=== PATIENT | male | born 1990 | race Caucasian/White ===

== ENCOUNTER 2017-09-17 10:58 | Emergency (ER) | payer MEDICAID ==
[2017-09-17 11:07] VITALS: RESP 16; TEMP 98.8
--- NOTE | 2017-09-17 11:34 | CPEKG ---
Heart Rate: 69 RR Interval: 870 P-R Interval: 148 QRSD Interval: 86 QT Interval: 368 QTC Interval: 395 P [place]: 70 QRS [place]: 74 T Wave [place]: 35 EKG Severity - NORMAL ECG - EKG Impression: SINUS RHYTHM Electronically Signed By: Nasir Warren 19-Sep-2017 05:31:48
--- NOTE | 2017-09-17 12:49 | EDPHY ---
HPI/HX/ROS/PE/MDM Narrative: CHIEF COMPLAINT: Anxiety, chest pain HISTORY OF PRESENT ILLNESS: This patient is a 27 year old male complaining of anxiety, difficulty breathing , and intermittent sharp chest pains onset two days ago. He endorses alcohol and methamphetamine use on Saturday. He denies cocaine use or OTC cough medications. His primary complaint today is anxiety. Yesterday, he experienced insomnia and lack of appetite. He had occasional sensations of numbness and paresthesias in his legs yesterday, but these have now resolved. He feels he has not been able to adequately return to baseline since his methamphetamine use. He has been in a transitional living rehabilitation program following occasional methamphetamine use over the last 1.5 years. Had not used in two months prior to last weekend. He denies personal history of hypertension, hyperlipidemia, diabetes or any known family history of cardiac disease. No recent cold, cough, rhinorrhea, fever, chills, palpitations, vomiting, diarrhea , urinary complaints, headache, lightheadedness. REVIEW OF SYSTEMS: Aside from elements discussed in the HPI, a comprehensive 10-point review of systems was reviewed and is negative. PAST MEDICAL HISTORY: 1. Medications: Gabapentin. Effexor. Wellbutrin. 2. Back pain. SOCIAL HISTORY: Uses chewing tobacco. Participating in transitional living rehabilitation program. Lives in [place]. VITAL SIGNS: Reviewed by me GENERAL: Well-developed, well-nourished, resting comfortably in no respiratory distress. HEENT: Atraumatic. Eyes: No icterus, no injection. Mouth: moist mucous membranes. No erythema or lesions. Neck: supple with no adenopathy. LUNGS: Clear to auscultation bilaterally, no wheezes, rhonchi or rales. CARDIAC: Regular rate and rhythm, no rubs, murmurs or gallops. ABDOMEN: Left upper quadrant tenderness. Soft, nondistended. BACK: No CVA tenderness. EXTREMITIES: No trauma. No edema. Range of motion is normal throughout. NEURO: Alert and oriented, grossly nonfocal. SKIN: Warm and dry, no rash. PSYCHIATRIC: Normal mentation, no agitation. Portions of this note were transcribed by a medical office technologist. I personally performed a history, physical exam, medical decision making, and confirmed accuracy of information the transcribed note. ED Course: 27 y/o male presents with chest pain, shortness of breath, and anxiety secondary to methamphetamine and alcohol use Saturday, three days ago. Plan for EKG, chest x-ray, labs including CBC, chemistries, troponin, liver, lipase. 12-LEAD EKG: Please see the full report in [facility]. My interpretation: Normal sinus rhythm, rate 69. Patient has no cardiac risk factors with the exception of his illicit drug use. He received Ativan which improved his symptoms. Troponin is negative. Chest x-ray negative for acute processes. Laboratory studies unremarkable. Plan to discharge back to his rehabilitation program in good condition. Follow up and return precautions discussed. The patient is comfortable with this plan. MDM: After history and physical examination, the differential for this patient's presenting complaint was considered, including but not limited to, myocardial ischemia, acute coronary syndrome, pulmonary embolus, chest wall pain, pleural inflammation and pulmonary infectious causes, gastric causes, anxiety, illicit drug use. - Data Points Imaging Results: CXR: Impression: No acute abnormality. Dictated By: Manav Schwab MD Imaging: I viewed and interpreted images myself Laboratory Results: Laboratory Results 09/17/17 11:42 09/17/17 11:42 Medications Given: Discontinued Medications Sodium Chloride (Ns) 1,000 mls @ 0 mls/hr IV EDNOW ONE; Wide Open PRN Reason: Protocol Stop: 09/17/17 12:52 Last Admin: 09/17/17 13:10 Dose: 1,000 mls Lorazepam (Ativan Injection) 1 mg IVP EDNOW ONE Stop: 09/17/17 13:57 Last Admin: 09/17/17 14:03 Dose: 1 mg General Time Seen by Provider: 09/17/17 12:26 Initial Vital Signs: Initial Vital Signs Temperature (C) 37.1 C 09/17/17 11:05 Heart Rate 67 09/17/17 11:05 Respiratory Rate 16 09/17/17 11:05 Blood Pressure 130/71 H 09/17/17 11:05 O2 Sat (%) 93 09/17/17 11:05 O2 Delivery Mode Room Air Allergies/Adverse Reactions: No Known Allergies Allergy (Verified 09/17/17 11:04) Home Medications: Medication Instructions Recorded Gabapentin [Neurontin] 12/02/15 Venlafaxine Xr [Effexor Xr 37.5MG 02/22/16 (RX)] LORazepam [Ativan] 1 mg PO BID PRN #6 tablet 09/17/17 Wellbutrin 100mg (*) 09/17/17 Departure - Departure Disposition: Home, Routine, Self-Care Clinical Impression: Methamphetamine use, Anxiety Chest pain Qualifiers: Chest pain type: unspecified Qualified Code(s): R07.9 - Chest pain, unspecified Condition: Good Instructions: Methamphetamine Abuse (ED), Anxiety (ED) Additional Instructions: 1. Please discontinue illicit drug use. 2. Follow up with your primary care provider for further evaluation of symptoms unresolved. 3. Return to the emergency department for fever, worsening chest pain or shortness of breath, or other worsening of condition. Referrals: Ruthie Chirinos MD [Medical Doctor] - As per Instructions Prescriptions: LORazepam [Ativan] 1 mg PO BID PRN #6 tablet PRN Reason: Anxiety Report Scribed for: Sandra Cueva Report Scribed by: Maribel Gonzalez Date of Report: 09/17/17 Time of Report: 13:51
[2017-09-17] MEDS ORDERED: NS 1,000 ML IV ONE (12:51)
[2017-09-17 12:57] LABS: % IMMATURE GRANULYOCYTES 0.2 % (0.0-1.1); ABSOLUTE IMMATURE GRANULOCYTES 0.01 10^3/uL (0.00-0.10); ADD DIFF? NO; ADD MORPH? NO; ADD SCAN? NO; ATYPICAL LYMPHOCYTE FLAG 10 (0-99); FRAGMENT RBC FLAG 0 (0-99); HEMATOCRIT 45.5 % (40.0-51.0); HEMOGLOBIN 16.5 g/dL (13.7-17.5); LEFT SHIFT FLG 0 (0-99); LIPEMIA HEMOLYSIS FLAG 90 (0-99); MEAN CELL HEMOGLOBIN CONCENTR. 36.3 g/dL (32.4-36.7); MEAN PLATELET VOLUME 10.5 fL (8.7-11.7); PLATELET CLUMPS FLAG 10 (0-99); PLATELET COUNT 253 10^3/uL (150-400); RED CELL DISTRIBUTION WIDTH 12.6 % (11.5-15.2)
[2017-09-17 13:07] LABS: ALANINE AMINOTRANSFERASE 34 IU/L (21-72); ALBUMIN 4.5 g/dL (3.5-5.0); ALKALINE PHOSPHATASE 75 IU/L (38-126); ANION GAP 13 mEq/L (8-16); ASPARTATE AMINOTRANSFERASE 29 IU/L (17-59); BILIRUBIN,TOTAL 0.5 mg/dL (0.1-1.4); BILIRUBIN-CONJUGATED 0.2 mg/dL (0.0-0.5); BILIRUBIN-UNCONJUGATED 0.3 mg/dL (0.0-1.1); CALCIUM 10.1 mg/dL (8.5-10.4); CARBON DIOXIDE 22 mEq/l (22-31); CHLORIDE 108 mEq/L (97-110); CREATININE 1.3 mg/dL (0.7-1.3); GLOMERULAR FILTRATION RATE > 60; GLUCOSE 92 mg/dL (70-100); POTASSIUM 4.5 mEq/L (3.5-5.2); SODIUM 143 mEq/L (134-144); TOTAL PROTEIN 7.4 g/dL (6.3-8.2)
[2017-09-17 13:18] LABS: TROPONIN I < 0.012 ng/mL (0.000-0.034)
[2017-09-17] MEDS ORDERED: LORazepam 2 MG/ML INJ IVP ONE (13:56)
[2017-09-17 14:03] LABS: CK-MB INTERPRETATION NEGATIVE (NEGATIVE)
[2017-09-17 14:36] VITALS: BP 111/78; PULSE 76; O2SAT 98
== END 2017-09-17 14:36 | disposition home or self-care (01) ==
DX: R07.9 Chest pain, unspecified (principal); F41.9 Anxiety disorder, unspecified; F15.90 Other stimulant use, unspecified, uncomplicated; F17.220 Nicotine dependence, chewing tobacco, uncomplicated
CPT/HCPCS: 96374; J2060

== ENCOUNTER 2017-09-21 12:44 | Emergency (ER) | payer MEDICAID ==
[2017-09-21 13:05] VITALS: BP 129/80; PULSE 95; RESP 16; TEMP 99; O2SAT 94
== END 2017-09-21 16:30 | disposition left against medical advice (07) ==
DX: Z53.21 Procedure and treatment not carried out due to patient leaving prior to being seen by health care provider (principal)

== ENCOUNTER 2017-10-22 14:35 | Emergency (ER) | payer MEDICAID ==
[2017-10-22 14:44] VITALS: RESP 18
--- NOTE | 2017-10-22 14:45 | CPEKG ---
Heart Rate: 111 RR Interval: 541 P-R Interval: 176 QRSD Interval: 88 QT Interval: 328 QTC Interval: 446 P [place]: 70 QRS [place]: 52 T Wave [place]: 11 EKG Severity - OTHERWISE NORMAL ECG - EKG Impression: SINUS TACHYCARDIA Electronically Signed By: Sandra Cueva 22-Oct-2017 21:57:43
[2017-10-22] MEDS ORDERED: NS 1,000 ML IV ONE ×2 (14:48→15:18)
--- NOTE | 2017-10-22 15:18 | EDPHY ---
H & P Stated Complaint: meth yesterday/today with cp/near syncope Time Seen by Provider: 10/22/17 14:47 HPI/ROS: CHIEF COMPLAINT: "Just having a hard time breathing;" near-syncope HISTORY OF PRESENT ILLNESS: The patient is a 27 y/o male with history of methamphetamine and alcohol abuse complaining of difficulty catching his breath , chest pain, and near-syncopal episode this morning about 2-3 hours after injecting meth. His story is inconsistent, but it does not sound like he lost consciousness at any point. He describes lying in bed trying to sleep, then felt like he couldn't catch his breath and had chest pain. He stood up, let out a deep breath, "heard a loud noise in my head then boom I blacked out and fell and caught myself on the bed." He says he was feeling anxious after using meth and prior to this event and he continues to feel anxious currently. He still has "a sharp pain in my heart with slow deep breath" and feels like he can't catch his breath and is dehydrated. He denies symptoms like this prior to today. He's felt intermittently sweaty over the last few days, but denies recent illness or trauma. He did drink alcohol this morning. He denies respiratory or cardiac disease history, pancreatitis, hypertension, diabetes, or familial history of these diseases. No fever, chills, palpitations, vomiting, diarrhea, urinary complaints, headache , lightheadedness. REVIEW OF SYSTEMS: Aside from elements discussed in the HPI, a comprehensive 10-point review of systems was reviewed and is negative. PAST MEDICAL HISTORY: Substance abuse SOCIAL HISTORY: Smokes meth. Heavy alcohol use. Former cigarette smoker, no marijuana or cocaine use VITAL SIGNS: Reviewed by me GENERAL: Well-developed, well-nourished, in no respiratory distress. Anxious. HEENT: Atraumatic. Eyes: No icterus, no injection. PERRL, Pupils 5mm. No nystagmus. Mouth: moist mucous membranes. No erythema or lesions. Neck: supple with no adenopathy. LUNGS: Clear to auscultation bilaterally, no wheezes, rhonchi or rales. CARDIAC: Regular rate and rhythm, no rubs, murmurs or gallops. No chest wall tenderness. ABDOMEN: Soft, nontender, nondistended, bowel sounds normal. BACK: No CVA tenderness. EXTREMITIES: No trauma. No edema. Range of motion is normal throughout. NEURO: Alert and oriented, grossly nonfocal. SKIN: Warm and dry, no rash. PSYCHIATRIC: Normal mentation, no agitation. Portions of this note were transcribed by a certified medical technician. I personally performed a history, physical exam, medical decision making, and confirmed accuracy of information the transcribed note. - Personal History Current Tetanus/Diphtheria Vaccine: No - Medical/Surgical History Hx Asthma: No Hx Chronic Respiratory Disease: No Hx Diabetes: No Hx Cardiac Disease: No Hx Renal Disease: No Hx Cirrhosis: No Hx Alcoholism: No Hx HIV/AIDS: No Hx Splenectomy or Spleen Trauma: No Other PMH: back pain - Social History Smoking Status: Current some day smoker Constitutional: Initial Vital Signs Temperature (C) 37 C 10/22/17 14:41 Heart Rate 108 H 10/22/17 14:41 Respiratory Rate 18 10/22/17 14:41 Blood Pressure 115/87 H 10/22/17 14:41 O2 Sat (%) 95 10/22/17 14:41 O2 Delivery Mode Room Air Allergies/Adverse Reactions: No Known Allergies Allergy (Verified 10/22/17 14:40) Home Medications: Medication Instructions Recorded Gabapentin [Neurontin] 12/02/15 Venlafaxine Xr [Effexor Xr 37.5MG 02/22/16 (RX)] Wellbutrin 100mg (*) 09/17/17 Medical Decision Making - Diagnostics Imaging Results: CXR: Impression: Possible airways disease. Dictated By: Chito Gracia MD Imaging: I viewed and interpreted images myself ED Course/Re-evaluation: This is a 27 y/o male who uses IV methamphetamine and presents today complaining of difficulty catching his breath, sharp chest pain, and a near- syncopal episode this morning occurring 2-3 hours post meth injection. He is mildly tachycardic but has an otherwise normal exam. Plan for IV, labs, EKG, chest x-ray. 2L IV NS administered. The 12 lead EKG was interpreted by myself. Sinus tachycardia rate 111. See hard copy and/or "tr[facility]aster" electronic copy for interpretation. Chest x-ray: negative for acute process. No pneumomediastinum or ptx. 2L IV NS administered. Normal troponin. Reassessed patient and discussed findings. He is feeling improved after fluids and ready to go home. He will be discharged home with standard care and follow up instructions. Return precautions discussed. He agrees with plan. Differential Diagnosis: diff dx considered included acute coronary syndrome, palpitations, dehydration, pneumothorax, pneumomediastinum, airways disease, anxiety, drug or alcohol abuse , drug or alcohol effects. - Data Points Laboratory Results: Laboratory Results 10/22/17 14:49 10/22/17 14:49 Medications Given: Discontinued Medications Sodium Chloride (Ns) 1,000 mls @ 0 mls/hr IV ONCE ONE PRN Reason: Wide Open Stop: 10/22/17 14:49 Last Admin: 10/22/17 15:16 Dose: 1,000 mls Sodium Chloride (Ns) 1,000 mls @ 0 mls/hr IV EDNOW ONE; Wide Open PRN Reason: Protocol Stop: 10/22/17 15:19 Last Admin: 10/22/17 15:27 Dose: 1,000 mls Departure - Departure Disposition: Home, Routine, Self-Care Clinical Impression: Methamphetamine use, Near syncope Condition: Good Instructions: Methamphetamine Abuse (ED), Near Syncope (ED) Additional Instructions: Please avoid abuse of drugs and alcohol. Follow up with your primary care provider in the next week. Go to the [facility] if you would like help detoxing from alcohol. Return to the ED for worsening of condition. Referrals: [facility],. [Primary Care Provider] - As per Instructions [facility] Detox 24 Hours [Outside] - As per Instructions Report Scribed for: Sandra Cueva Report Scribed by: Racheal Anderson Date of Report: 10/22/17 Time of Report: 15:18
[2017-10-22 15:28] LABS: PLATELET COUNT 326 10^3/uL (150-400)
[2017-10-22 17:50] VITALS: BP 155/92; PULSE 89; TEMP 98.8; O2SAT 95
== END 2017-10-22 17:50 | disposition home or self-care (01) ==
LOC: EDUNIT#
DX: R55 Syncope and collapse (principal); F15.90 Other stimulant use, unspecified, uncomplicated; F17.200 Nicotine dependence, unspecified, uncomplicated; E86.9 Volume depletion, unspecified

== ENCOUNTER 2017-11-27 11:29 | Emergency (ER) | payer MEDICAID ==
--- NOTE | 2017-11-27 11:41 | CPEKG ---
Heart Rate: 112 RR Interval: 536 P-R Interval: 140 QRSD Interval: 86 QT Interval: 316 QTC Interval: 432 P [place]: 81 QRS [place]: 80 T Wave [place]: 38 EKG Severity - OTHERWISE NORMAL ECG - EKG Impression: SINUS TACHYCARDIA Electronically Signed By: Jonatan Craven 27-Nov-2017 14:45:11
[2017-11-27] MEDS ORDERED: NS 1,000 ML IV ONE ×2 (12:12→14:51)
--- NOTE | 2017-11-27 12:58 | EDPHY ---
H & P Time Seen by Provider: 11/27/17 12:55 HPI/ROS: Chief complaint. Chest pain, recent meth use HPI. 27-year-old male presents with off and on chest discomfort for the last 3 days. It coincides with methamphetamine use the last 3 days. He notes that when he has the chest discomfort it is because his heart is pounding and he has some chest tightness as well as posterior back tightness. Symptoms are worse with deep breathing but not with exertion or position. No fever cough. No unusual leg pain or swelling. No history of heart problems. No shortness of breath. Last meth use was last night ROS Constitutional. no fever/chills, no weakness Eyes. no problems with vision ENT. no sore throat, no nasal drainage Cardiovascular. Chest tightness Respiratory. no shortness of breath, no cough Abdominal. no abdominal pain, no nausea/vomiting, no diarrhea . no problems urinating MS. no calf pain/swelling, no neck/back pain, no joint pain Skin. no rash Lymph. no swollen glands Neuro. no headache, no dizziness, no difficulty walking or with speech Past Medical/Surgical History: Polysubstance abuse No family history of early coronary artery disease Social History: Single, daily smoker, no alcohol Smoking Status: Current some day smoker Physical Exam: General Appearance: Alert well-developed male mild distress vital signs show heart rate about 105 and blood pressure 134/99 Eyes: Pupils equal and round no pallor or injection. ENT, Mouth: Mucous membranes are moist. Respiratory: There are no retractions, lungs are clear to auscultation. Cardiovascular: Regular rate and rhythm. Tachycardia Gastrointestinal: Abdomen is soft and nontender, no masses, bowel sounds normal. Neurological: Awake and alert, sensory and motor exams grossly normal. Skin: Warm and dry, no rashes. Musculoskeletal: Neck is supple nontender. Extremities symmetrical, full range of motion. Psychiatric: Patient is oriented X 3, there is no agitation. Constitutional: Initial Vital Signs Temperature (C) 36.9 C 11/27/17 11:36 Heart Rate 105 H 11/27/17 11:36 Respiratory Rate 18 11/27/17 11:36 Blood Pressure 134/99 H 11/27/17 11:36 O2 Sat (%) 98 11/27/17 11:36 O2 Delivery Mode Room Air Allergies/Adverse Reactions: No Known Allergies Allergy (Verified 11/27/17 12:01) Home Medications: Medication Instructions Recorded Gabapentin [Neurontin] 12/02/15 Venlafaxine Xr [Effexor Xr 37.5MG 02/22/16 (RX)] Wellbutrin 100mg (*) 09/17/17 LORazepam [Ativan] 1 mg PO Q6-8PRN PRN #10 tab 11/27/17 Medical Decision Making - Diagnostics EKG Interpretation: EKG interpreted by me shows sinus tachycardia normal interval and axis. QRS is normal there is no significant ST elevation or depression. The rate is 112 Imaging Results: Imaging Impressions Chest X-Ray 11/27/17 13:12 Impression: Lung hyperinflation, with no focal infiltrate or pneumothorax. Chest x-ray interpreted by me as negative for pneumothorax or pneumonia Procedures: IV normal saline, monitor. Ativan IV. ED Course/Re-evaluation: Re-evaluation 2:45 p.m.. Patient and I discussed imaging, EKG, lab results. We discussed treatment plan including criteria for return importance of follow- up and further evaluation. He expresses understanding and agreement After 1 L of saline heart rate is 108. He is given another L of saline and IV and oral Ativan. Re-evaluation at 4:30 p.m.. Patient is feeling much better. We discussed the treatment plan. He feels well to go. Differential Diagnosis: The methamphetamine use with chest pain. I considered acute VT. Is tachycardic but no evidence for acute VT. - Data Points Laboratory Results: Laboratory Results 11/27/17 11:40 11/27/17 11:40 11/27/17 11/27/17 11/27/17 11:40 11:40 11:40 WBC 12.01 10^3/uL H 10^3/uL (3.80-9.50) RBC 5.72 10^6/uL 10^6/uL (4.40-6.38) Hgb 18.3 g/dL H g/dL (13.7-17.5) Hct 53.4 % H % (40.0-51.0) MCV 93.4 fL fL (81.5-99.8) MCH 32.0 pg pg (27.9-34.1) MCHC 34.3 g/dL g/dL (32.4-36.7) RDW 12.6 % % (11.5-15.2) Plt Count 357 10^3/uL 10^3/uL (150-400) D-Dimer < 0.27 ug/mLFEU ug/mLFEU (0.00-0.50) Sodium 143 mEq/L mEq/L (135-145) Potassium 5.0 mEq/L mEq/L (3.5-5.2) Chloride 102 mEq/L mEq/L (97-110) Carbon Dioxide 18 mEq/l L mEq/l (22-31) Anion Gap 23 mEq/L H mEq/L (8-16) BUN 16 mg/dL mg/dL (7-23) Creatinine 1.5 mg/dL H mg/dL (0.7-1.3) Estimated GFR 55 Glucose 105 mg/dL H mg/dL (70-100) Calcium 11.1 mg/dL H mg/dL (8.5-10.4) Phosphorus 5.3 mg/dL H mg/dL (2.5-4.5) Total Bilirubin 0.9 mg/dL mg/dL (0.1-1.4) AST 98 IU/L H IU/L (17-59) ALT 73 IU/L H IU/L (21-72) Alkaline Phosphatase 101 IU/L IU/L (38-126) Troponin I < 0.012 ng/mL ng/mL (0.000-0.034) Total Protein 9.6 g/dL H g/dL (6.3-8.2) Albumin 5.7 g/dL H g/dL (3.5-5.0) Medications Given: Discontinued Medications Sodium Chloride (Ns) 1,000 mls @ 0 mls/hr IV ONCE ONE PRN Reason: Wide [place] Stop: 11/27/17 12:13 Last Admin: 11/27/17 12:14 Dose: 1,000 mls Sodium Chloride (Ns) 1,000 mls @ 0 mls/hr IV EDNOW ONE; Wide Open PRN Reason: Protocol Stop: 11/27/17 14:52 Last Admin: 11/27/17 15:02 Dose: 1,000 mls Lorazepam (Ativan Injection) 1 mg IVP EDNOW ONE Stop: 11/27/17 13:12 Last Admin: 11/27/17 13:13 Dose: 1 mg Lorazepam (Ativan Injection) 1 mg IVP EDNOW ONE Stop: 11/27/17 14:52 Last Admin: 11/27/17 15:01 Dose: 1 mg Lorazepam (Ativan) 1 mg PO EDNOW ONE Stop: 11/27/17 14:52 Last Admin: 11/27/17 15:01 Dose: 1 mg Departure - Departure Disposition: Home, Routine, Self-Care Clinical Impression: Methamphetamine use Chest pain Qualifiers: Chest pain type: other chest pain Qualified Code(s): R07.89 - Other chest pain ; R07.8 - Other chest pain Condition: Good Instructions: Chest Pain (ED) Additional Instructions: Easy activity; drink plenty of fluids. Ativan every 6-8 hours as needed for anxiety and rapid heartbeat. Please try to decrease your methamphetamine use and use drugs responsibly Return for worsening chest discomfort or trouble breathing. Recheck at [facility] in 2-3 days Referrals: Patient,NotPresent [Unknown] - As per Instructions [facility] [Outside] - 2-3 days without fail Prescriptions: LORazepam [Ativan] 1 mg PO Q6-8PRN PRN #10 tab PRN Reason: Anxiety
[2017-11-27] MEDS ORDERED: LORazepam 2 MG/ML INJ ONE (13:10)
[2017-11-27] MEDS ORDERED: LORazepam 2 MG/ML INJ IVP ONE ×2 (13:11→14:51)
[2017-11-27] MEDS ORDERED: LORazepam 1 MG TAB PO ONE (14:51)
[2017-11-27 16:11] VITALS: O2SAT 96
[2017-11-27 16:36] VITALS: BP 112/88; PULSE 93; RESP 18; TEMP 98.6
== END 2017-11-27 16:42 | disposition home or self-care (01) ==
LOC: EDUNIT#
DX: R07.89 Other chest pain (principal); F15.90 Other stimulant use, unspecified, uncomplicated; E86.9 Volume depletion, unspecified; F17.200 Nicotine dependence, unspecified, uncomplicated
CPT/HCPCS: 96374; J2060

== ENCOUNTER 2018-01-24 12:17 | Emergency (ER) | payer MEDICAID ==
--- NOTE | 2018-01-24 12:27 | CPEKG ---
Heart Rate: 117 RR Interval: 513 P-R Interval: 148 QRSD Interval: 88 QT Interval: 316 QTC Interval: 441 P [place]: 84 QRS [place]: 82 T Wave [place]: 18 EKG Severity - BORDERLINE ECG - EKG Impression: SINUS TACHYCARDIA EKG Impression: PROBABLE LEFT ATRIAL ABNORMALITY Electronically Signed By: Nicole Torres 25-Jan-2018 10:46:16
[2018-01-24 12:54] LABS: PLATELET COUNT 343 10^3/uL (150-400)
--- NOTE | 2018-01-24 13:04 | EDPHY ---
H & P Stated Complaint: SI/OD Source: Patient - Personal History Current Tetanus/Diphtheria Vaccine: Unsure Current Tetanus Diphtheria and Acellular Pertussis (TDAP): Unsure - Medical/Surgical History Hx Asthma: No Hx Chronic Respiratory Disease: No Hx Diabetes: No Hx Cardiac Disease: No Hx Renal Disease: No Hx Cirrhosis: No Hx Alcoholism: No Hx HIV/AIDS: No Hx Splenectomy or Spleen Trauma: No Other PMH: back pain, polysubstance abuse(meth,cocain,ETOH), anxiety, depression - Social History Smoking Status: Current some day smoker Time Seen by Provider: 01/24/18 13:04 HPI/ROS: CHIEF COMPLAINT: Suicidal ideation with overdose prescription medications HISTORY OF PRESENT ILLNESS: The patient presents the ED after he reportedly overdosed on gabapentin, Effexor and Wellbutrin. The patient reportedly is taking these medications over the past 12 hr. He reports ongoing suicidal ideation. He reports a history of depression and anxiety. He reports using alcohol, cocaine and methamphetamine over the past 3 days. The patient denies significant past medical history. He takes no other prescription medications. The patient currently complains of ongoing depression, mild dyspnea and slight tachycardia. REVIEW OF SYSTEMS: A comprehensive 10 point review of systems is otherwise negative aside from elements mentioned in the history of present illness. (Joseph Rebollar) - Physical Exam Exam: General Appearance: Alert, cooperative Eyes: Pupils equal and round no pallor or injection ENT, Mouth: Mucous membranes moist Respiratory: There are no retractions, lungs are clear to auscultation Cardiovascular: Tachycardia, no rubs murmurs or gallops Gastrointestinal: Soft nontender Neurological: 5/5 strength all 4 extremities Skin: Warm and dry, no rashes Musculoskeletal: Neck is supple nontender Extremities: symmetrical, full range of motion Psychiatric: Anxious, endorses depression and suicidal ideation (Joseph Rebollar) Constitutional: Initial Vital Signs Temperature (C) 36.8 C 01/24/18 12:17 Heart Rate 129 H 01/24/18 12:17 Respiratory Rate 14 01/24/18 12:17 Blood Pressure 119/95 H 01/24/18 12:17 O2 Sat (%) 98 01/24/18 12:17 O2 Delivery Mode Room Air O2 (L/minute) 2 Allergies/Adverse Reactions: No Known Allergies Allergy (Verified 11/27/17 12:01) Home Medications: Medication Instructions Recorded Gabapentin [Neurontin] 12/02/15 Venlafaxine Xr [Effexor Xr 37.5MG 02/22/16 (RX)] Wellbutrin 100mg (*) 09/17/17 Campral 333 MG (*) 01/24/18 Medical Decision Making - Diagnostics EKG Interpretation: EKG: Complete interpretation has been separately recorded in the [facility] archive. Summary impression: Sinus tachycardia, rate 117, normal QRS duration (Joseph Rebollar) ED Course/Re-evaluation: The patient had an IV established. He received 2 L of normal saline. The patient currently has methamphetamine and cocaine in his urine. He will undergo a delayed mental health evaluation is result of this. The patient has no evidence of sympathomimetic toxicity in the emergency department. The patient was given 1 mg of IV Ativan at 8:30 p.m.. The patient will be turned over to Dr. Ga at shift change pending psychiatric evaluation. (Joseph Rebollar) 2200 care assumed by me pending delayed mental health evaluation secondary to methamphetamine use. 0350 patient has been evaluated by the mental health sales promoter. Now that he no longer has methamphetamine in his system the patient is no longer suicidal. He is not hallucinating. He is christy for safety. He would just like to go home and get some sleep. He can go back to his father's house. Patient is discharged with follow-up as an outpatient. (Manav Ga) Differential Diagnosis: Differential diagnosis considered includes suicidal ideation, serotonin syndrome , unstable arrhythmia (Joseph Rebollar) - Data Points Laboratory Results: Laboratory Results 01/24/18 12:00 01/24/18 12:00 Medications Given: Discontinued Medications Lorazepam (Ativan Injection) 1 mg IVP EDNOW ONE Stop: 01/24/18 20:19 Last Admin: 01/24/18 20:22 Dose: 1 mg Lorazepam (Ativan Injection) 1 mg IVP EDNOW ONE Stop: 01/24/18 23:08 Last Admin: 01/24/18 23:09 Dose: 1 mg Lorazepam (Ativan Injection) 1 mg IVP EDNOW ONE Stop: 01/25/18 01:01 Last Admin: 01/25/18 01:06 Dose: 1 mg Departure - Departure Disposition: Home, Routine, Self-Care Clinical Impression: Polysubstance abuse Condition: Good Instructions: Polysubstance Abuse (ED) Referrals: Patient,NotPresent [Unknown] - As per Instructions
[2018-01-24] MEDS ORDERED: NS 1,000 ML IV ONE ×2 (15:01)
[2018-01-24] MEDS ORDERED: LORazepam 2 MG/ML INJ IVP ONE ×2 (20:18→23:07)
[2018-01-24] MEDS ORDERED: LORazepam 2 MG/ML INJ ONE (23:06)
[2018-01-25] MEDS ORDERED: LORazepam 2 MG/ML INJ IVP ONE (01:00)
[2018-01-25 04:44] VITALS: BP 123/80
== END 2018-01-25 04:44 | disposition home or self-care (01) ==
LOC: EDUNIT# → EDBD
DX: F19.10 Other psychoactive substance abuse, uncomplicated (principal); F17.200 Nicotine dependence, unspecified, uncomplicated
CPT/HCPCS: 80305; 96374; G0480; J2060